=== PATIENT | female | born 1990 | race Caucasian/White ===

== ENCOUNTER 2017-02-18 11:18 | Emergency (ER) | payer MEDICAID, OTHER ==
[2017-02-18 11:30] VITALS: BP 110/64
--- NOTE | 2017-02-18 12:00 | UC ---
Throat Pain/Nasal [place] HPI - HPI Summary HPI Summary: 26 yo female with > one week of sinus pressure and pain post nasal drip sore throat feverish low energy - History of Current Complaint Chief Complaint: UCRespiratory Stated Complaint: SINUS PRESSURE Time Seen by Provider: 02/18/17 11:52 Hx Obtained From: Patient Hx Last Menstrual Period: 02/12/17 Onset/Duration: Gradual Onset, Lasting Weeks Severity: Moderate Pain Intensity: 4 Pain Scale Used: 0-10 Numeric Cough: Nonproductive Associated Signs & Symptoms: Positive: Sinus Discomfort, Nasal Discharge, Fever - Epiglottits Risk Factors Epiglottis Risk Factors: Negative - Allergies/Home Medications Allergies/Adverse Reactions: Allergies Allergy/AdvReac Type Severity Reaction Status Date / Time No Known Allergies Allergy Verified 02/18/17 11:30 Home Medications: Home Medications Cetirizine* [ZyrTEC 10 MG TAB*] 10 mg PO DAILY 02/18/17 [History Confirmed 02/18] Lozenge 1 tab PO SEE INSTRUCTIONS 02/18/17 [History] Norethindr/Eth Estradiol(Nf) [Lo Loestrin Fe (NF)] 1 tab PO DAILY 02/18/17 [ History Confirmed 02/18/17] PMH/Surg Hx/FS Hx/Imm Hx Previously Healthy: Yes Psychological History: Anxiety - Surgical History Surgical History: Yes Surgery Procedure, Year, and Place: wisdom teeth - Family History Known Family History: Positive: Hypertension - Social History Alcohol Use: Occasionally Substance Use Type: None Smoking Status (MU): Never Smoked Tobacco Review of Systems Constitutional: Negative Skin: Negative Eyes: Negative ENT: Nasal Discharge, Sinus Congestion, Sinus Pain/Tenderness Respiratory: Negative Cardiovascular: Negative Gastrointestinal: Negative Genitourinary: Negative Motor: Negative Neurovascular: Negative Musculoskeletal: Negative Neurological: Negative Psychological: Negative All Other Systems Reviewed And Are Negative: Yes Physical Exam Triage Information Reviewed: Yes Appearance: Well-Appearing, No Pain Distress, Well-Nourished Vital Signs: Initial Vital Signs Temp 98.6 F 02/18/17 11:23 Pulse 79 02/18/17 11:23 Resp 18 02/18/17 11:23 BP 110/64 02/18/17 11:23 Eyes: Positive: Conjunctiva Clear ENT: Positive: Hearing grossly normal, Nasal congestion, Nasal drainage. Negative: Tonsillar exudate, Trismus, Muffled/hoarse voice Neck: Positive: Supple, Nontender Respiratory: Positive: Lungs clear, Normal breath sounds, No respiratory distress, No accessory muscle use Cardiovascular: Positive: RRR, No Murmur Musculoskeletal: Positive: ROM Intact, No Edema Neurological: Positive: Alert Psychological Exam: Normal Skin Exam: Normal Throat Pain/Nasal Course/Dx - Differential Dx/Diagnosis Provider Diagnoses: acute sinusitis Discharge - Discharge Plan Condition: Stable Disposition: HOME Prescriptions: Amoxicillin (*) [Amoxicillin 875 MG (*)] 875 mg PO BID #20 tab Patient Education Materials: Sinusitis (ED) Referrals: Shane Rosenbaum MD [Primary Care Provider] - If Needed Additional Instructions: warm facial compresses saline nasal spray twice daily you could also try flonase (OTC) recheck next week if not better
== END 2017-02-18 12:12 | disposition home or self-care (01) ==
LOC: UCCORT 11:18
DX: J01.90 Acute sinusitis, unspecified (principal); F41.9 Anxiety disorder, unspecified
CPT/HCPCS: 99212; G0463

== ENCOUNTER 2017-09-02 09:10 | Emergency (ER) | payer OTHER ==
[2017-09-02 09:59] VITALS: BP 106/74
--- NOTE | 2017-09-02 10:49 | UC ---
Complaint Female HPI - HPI Summary HPI Summary: Pt c/o sudden c/o urinary symptoms of frequency, urgency, and dysuria X 1 day. - History Of Current Complaint Hx Obtained From: Patient Hx Last Menstrual Period: 08/20/17 ?: No Onset/Duration: Sudden Onset, Still Present Timing: Constant Severity Initially: Mild Severity Currently: Mild Character: Dull, Burning Aggravating Factor(s): Urination Alleviating Factor(s): Nothing Associated Signs And Symptoms: Positive: Negative <Isabella Jose NP - Last Filed: 09/02/17 12:08> <Rukhsana Chandler - Last Filed: 09/02/17 12:11> - History Of Current Complaint Chief Complaint: UCGU Stated Complaint: URINARY COMPLAINT Time Seen by Provider: 09/02/17 10:43 - Allergies/Home Medications Allergies/Adverse Reactions: Allergies Allergy/AdvReac Type Severity Reaction Status Date / Time No Known Allergies Allergy Verified 09/02/17 09:55 PMH/Surg Hx/FS Hx/Imm Hx Previously Healthy: Yes - Surgical History Surgical History: Yes Surgery Procedure, Year, and Place: wisdom teeth - Family History Known Family History: Positive: Hypertension - Social History Occupation: Employed Full-time Lives: With Family Alcohol Use: Occasionally Substance Use Type: None Smoking Status (MU): Never Smoked Tobacco Have You Smoked in the Last Year: No <Isabella Jose NP - Last Filed: 09/02/17 12:08> Review of Systems Constitutional: Negative Skin: Negative Eyes: Negative ENT: Negative Respiratory: Negative Cardiovascular: Negative Gastrointestinal: Negative Genitourinary: Dysuria, Frequency, Urgency Motor: Negative Neurovascular: Negative Musculoskeletal: Negative Neurological: Negative Psychological: Negative Is Patient Immunocompromised?: No All Other Systems Reviewed And Are Negative: Yes <Isabella Jose NP - Last Filed: 09/02/17 12:08> Physical Exam Triage Information Reviewed: Yes Appearance: Well-Appearing Vital Signs: Initial Vital Signs Temp 98.8 F 09/02/17 09:56 Pulse 77 09/02/17 09:56 Resp 18 09/02/17 09:56 BP 106/74 09/02/17 09:56 Vital Signs Reviewed: Yes Eye Exam: Normal ENT Exam: Normal Dental Exam: Normal Neck exam: Normal Respiratory Exam: Normal Cardiovascular Exam: Normal Abdominal Exam: Normal Musculoskeletal Exam: Normal Neurological Exam: Normal Psychological Exam: Normal Skin Exam: Normal <Isabella Jose NP - Last Filed: 09/02/17 12:08> Vital Signs: Initial Vital Signs Temp 98.8 F 09/02/17 09:56 Pulse 77 09/02/17 09:56 Resp 18 09/02/17 09:56 BP 106/74 09/02/17 09:56 <Rukhsana Chandler - Last Filed: 09/02/17 12:11> Complaint Female Dx - Differential Dx/Diagnosis Differential Diagnosis/HQI/PQRI: Urinary Tract Infection Provider Diagnoses: UTI <Isabella Jose NP - Last Filed: 09/02/17 12:08> Discharge <Isabella Jose NP - Last Filed: 09/02/17 12:08> <Rukhsana Chandler - Last Filed: 09/02/17 12:11> - Discharge Plan Condition: Stable Disposition: HOME Prescriptions: Cephalexin CAP* [Keflex 500 CAP*] 500 mg PO Q12H #10 cap Phenazopyridine TAB* [Pyridium 100 mg TAB*] 100 mg PO Q8H #3 tab Patient Education Materials: Urinary Tract Infection in Women (ED) Referrals: No Primary Care Phys,NOPCP [Primary Care Provider] - [facility] [place] [facility] REFERRAL [Outside] Attestation Statement User Type: Provider - I was available for consult. This patient was seen by the NICOLE. The patient was not presented to, seen by, or examined by me. -Minnie <Rukhsana Chandler - Last Filed: 09/02/17 12:11>
== END 2017-09-02 10:54 | disposition home or self-care (01) ==
LOC: UCCORT 09:10
DX: N39.0 Urinary tract infection, site not specified (principal); B96.20 Unspecified Escherichia coli [E. coli] as the cause of diseases classified elsewhere
CPT/HCPCS: 81003; 87077; 87086; 87186; 99212; G0463